=== PATIENT | female | born 1940 | race Caucasian/White ===

== ENCOUNTER 2017-10-26 06:19 | Day surgery (SDC) | payer MEDICARE, OTHER ==
[~2017-10-26] VITALS: Ht 165.1 cm; Wt 72.5 kg
[2017-10-26] VITALS (15 sets, daily range): BP systolic 111–152; BP diastolic 70–97
[~2017-10-26 06:19] MED LIST: ASPI-845 PO; ATOR80TA PO; BENA40TA2 PO; CARV-49 PO; CLOP75TA35 PO; FISH OIL PO; MULT-1085 PO
[2017-10-26] MEDS ORDERED: LIDOcaine 1% (10mg/ml) 2ml vial ONE (07:14)
[2017-10-26] MEDS ORDERED: lidocaine 2% viscous 15 ML cup ***bronch room only MM ONE (07:39)
[2017-10-26 07:40] LABS: BASOPHILS % (AUTO) 0.4 % (0-1); EOSINOPHILS # (AUTO) 0.2 X10'3 (0-0.9); EOSINOPHILS % (AUTO) 2.5 % (0-6); HEMATOCRIT 30.1 % (35.0-45.0); HEMOGLOBIN 10.1 g/dl (12.0-16.0); LYMPHOCYTES # (AUTO) 1.5 X10'3 (1.1-4.8); LYMPHOCYTES % (AUTO) 18.8 % (21-51); MEAN CORPUSCULAR HEMOGLOBIN 28.6 PG (27.0-31.0); MEAN CORPUSCULAR HGB CONC 33.6 % (33.0-36.5); MEAN CORPUSCULAR VOLUME 85.1 FL (78-98); MEAN PLATELET VOLUME 6.9 FL (7.4-10.4); MONOCYTES # (AUTO) 0.7 X10'3 (0-0.9); MONOCYTES % (AUTO) 8.5 % (2-12); NEUTROPHILS # (AUTO) 5.4 X10'3 (1.8-7.7); NEUTROPHILS % (AUTO) 69.8 % (42-75); PLATELET COUNT 526 X10'3 (140-440); RED BLOOD COUNT 3.53 X10'6 (4.20-5.60); RED CELL DISTRIBUTION WIDTH 14.4 % (11.5-14.5); WHITE BLOOD COUNT 7.8 X10'3 (4.5-11.0)
[2017-10-26] MEDS ORDERED: LIDOCAINE 4% (40MG/ML) topical solution 50ml **BRONCH ONLY ONE (07:40)
[2017-10-26] MEDS ORDERED: phenylephrine 1% Nasal spray (extra-strength) 15 ML bottle **bronch room NS ONE (07:40)
[2017-10-26] MEDS ORDERED: MIDAZolam 5mg/5ml vial ONE (08:07)
[2017-10-26] MEDS ORDERED: fentaNYL/PF 50MCG/1 ML 2ML syringe ONE (08:07)
[2017-10-26] MEDS ORDERED: LIDOcaine 4% (40 mg/ml) topical solution 50ml TP ONE (08:15)
[2017-10-26] MEDS ORDERED: LIDOcaine Viscous 15ml cup MM ONE (08:15)
[2017-10-26] MEDS ORDERED: phenylephrine 1% (X-tra strg) 15ml nasal spray NS ONE (08:15)
[2017-10-26] MEDS ORDERED: morphine 10mg/ml inj. IM PRN (08:15)
[2017-10-26] MEDS ORDERED: OMEG1CAP2 PO (12:52)
[2017-10-26] MEDS ORDERED: CLOP75TA15 PO (12:52)
== END 2017-10-26 11:40 | disposition home or self-care (01) ==
LOC: SSTAY O 06:19
PROVIDERS: ATTEND Internal Medicine Pulmonary Disease
DX: C34.31 Malignant neoplasm of lower lobe, right bronchus or lung (principal); J44.9 Chronic obstructive pulmonary disease, unspecified; K21.9 Gastro-esophageal reflux disease without esophagitis; I25.10 Atherosclerotic heart disease of native coronary artery without angina pectoris; I10 Essential (primary) hypertension; E78.5 Hyperlipidemia, unspecified; Z79.01 Long term (current) use of anticoagulants; Z86.74 Personal history of sudden cardiac arrest; Z72.89 Other problems related to lifestyle; Z87.891 Personal history of nicotine dependence; Z98.890 Other specified postprocedural states; Z79.899 Other long term (current) drug therapy
CPT/HCPCS: 31628; 36415; 76499; 82378; 85025; 85651; 87070; 88341; 88342; 94640; 94760; J2250; J2270; J3010; J3490; J7030; 31622; 88104; 88173; 88305

== ENCOUNTER 2017-10-31 07:10 | Outpatient (CLI) | payer MEDICARE, OTHER ==
[~2017-10-31] VITALS: Ht 165.1 cm; Wt 72.6 kg
[~2017-10-31 07:10] MED LIST changes: -ASPI-845 PO; +CLOP75TA15 PO; -CLOP75TA35 PO; -FISH OIL PO; +OMEG1CAP2 PO
[2017-10-31] MEDS ORDERED: albuterol 2.5 MG/3 ML nebule NEB PRN (07:45)
== END 2017-10-31 23:59 | disposition home or self-care (01) ==
LOC: RT 07:10
PROVIDERS: ATTEND Internal Medicine Pulmonary Disease
DX: C34.91 Malignant neoplasm of unspecified part of right bronchus or lung (principal); J44.9 Chronic obstructive pulmonary disease, unspecified; R06.09 Other forms of dyspnea; F17.200 Nicotine dependence, unspecified, uncomplicated; I10 Essential (primary) hypertension
CPT/HCPCS: 94060; 94640; 94727; 94729; 94760